=== PATIENT | male | born 1995 | race American Indian/Alaskan Native ===

== ENCOUNTER 2017-04-17 01:30 | Emergency (ER) | payer SELFPAY ==
[2017-04-17] MEDS ORDERED: NACL 0.9% 1000 ML 1,000 ML IV ONE (01:51)
--- NOTE | 2017-04-17 02:03 | Emergency Department Report ---
HPI - General Time Seen by Provider: 04/17/17 01:42 - HPI HPI: This is a 21 year-old male presents to the emergency department by EMS with some altered mental status. The patient allegedly was at a libertarian where he did some type of drug and then apparently left the libertarian and ran to a nearby gas station. He was found banging on doors and windows they 're saying that someone is trying to kill him. He now says that he was trying to get out of the libertarian as he did not like the environment and is mentioning something regarding their being transgender individual is there and concern for catching some type of disease. He is AAO 3 but does appear confused. ED Past Medical Hx - Medications Home Medications: Home Medications Medication Instructions Recorded Confirmed Last Taken Type No Known Home Medications [No 04/17/17 04/17/17 Unknown History Reported Home Medications] ED Review of Systems ROS: Stated complaint: AMS Other details as noted in HPI Comment: Unobtainable due to pts medical conditions Physical Exam - Physical Exam Physical Exam: GENERAL: The patient is well-developed well-nourished. HENT: Normocephalic. Atraumatic. Patient has moist mucous membranes. EYES: Extraocular motions are intact. Pupils equal reactive to light bilaterally. No nystagmus. NECK: Supple. Trachea is midline. CHEST/LUNGS: Clear to auscultation. There is no respiratory distress noted. HEART/CARDIOVASCULAR: Regular. There is no tachycardia. There is no gallop rub or murmur. ABDOMEN: Abdomen is soft, nontender. Patient has normal bowel sounds. There is no abdominal distention. SKIN: Skin is warm and dry NEURO: Patient is awake and AAO 3 but still show some confusion. The patient is cooperative. The patient has normal speech. MUSCULOSKELETAL: There is no tenderness or deformity. There is no limitation range of motion. There is no evidence of acute injury. ED Medical Decision Making - Lab Data Result diagrams: 04/17/17 02:12 04/17/17 02:12 - EKG Data -: EKG Interpreted by Me EKG shows normal: sinus rhythm, axis, intervals, QRS complexes (early repolarization), ST-T waves Rate: normal - EKG Data When compared to previous EKG there are: previous EKG unavailable Interpretation: other (sinus rhythm, normal axis, normal intervals, early repolarization pattern) - Radiology Data Radiology results: image reviewed interpreted by me: Chest x-ray does not show any acute process. There are no pleural effusions, obvious pneumonia and there is no pneumothorax. - Medical Decision Making 21-year-old male presents with some altered mental status. It appears as if he smoked marijuana that may or may not have been laced with something and he had an adverse reaction. When he came in he was awake but still showed some confusion. His labs are mostly unremarkable except for a slightly elevated lactic acid level. He came in with tachycardia, tachypnea but he was afebrile and there was no hypoxia. He was given some IV fluid. Chest x-ray did not show any acute process. He was reevaluated multiple times over multiple hours and has greatly improved and is back at his normal baseline mental status. His parents are bedside and agreed that he is back to normal. We did not find the offending agent that caused his symptoms and/or some transient altered mental status and her psychosis. Since the patient is feeling well, back at baseline, and currently asymptomatic and will be going home with his parents who can keep an eye on him, he will be discharged home despite the slight elevation in the lactic acid level. The vital signs improved to normal. He's been encouraged to stay away from any further illicit drug use and return to the emergency department with any acute distress. - Differential Diagnosis substance abuse, psychosis, schizophrenia Critical Care Time: No Critical care attestation.: If time is entered above; I have spent that time in minutes in the direct care of this critically ill patient, excluding procedure time. ED Disposition Clinical Impression: Hypokalemia Altered mental status Qualifiers: Altered mental status type: transient alteration of awareness Qualified Code(s) : R40.4 - Transient alteration of awareness Disposition: DC-01 TO HOME OR SELFCARE Is pt being admited?: No Condition: Stable Instructions: Hypokalemia (ED), Altered Mental Status (ED) Additional Instructions: Please follow up with a primary care physician as soon as possible. Please try and avoid any further illicit drug use. Return to the emergency department immediately if there is any signs of altered mental status, chest pain or shortness of breath, or any acute distress. Referrals: PRIMARY CARE, [Primary Care Provider] - 3-5 Days ALYSE ZELAYA MD [Staff Physician] - 3-5 Days LYN PRIEST MD [Staff Physician] - 3-5 Days Time of Disposition: 05:28
[2017-04-17 02:48] LABS: Alanine Aminotransferase 15 units/L (7-56); Albumin 4.1 g/dL (3.9-5); Albumin/Globulin Ratio 1.5 %; Alkaline Phosphatase 55 units/L (35-129); Anion Gap 23 mmol/L; BUN/Creatinine Ratio 14; Bilirubin,Total < 0.20 mg/dL (0.1-1.2); Blood Urea Nitrogen 18 mg/dL (9-20); Carbon Dioxide 24 mmol/L (22-30); Chloride 91.4 mmol/L (98-107); Creatine Kinase 233 units/L (55-170); Glucose 220 mg/dL (75-100); Potassium 3.2 mmol/L (3.6-5.0); Sodium 135 mmol/L (137-145); Total Protein 6.8 g/dL (6.3-8.2)
[2017-04-17] MEDS ORDERED: K-DUR PO ONE (02:55)
[2017-04-17 02:56] LABS: Basophils % (Auto) 0.3 % (0.0-1.8); Eosinophils % (Auto) 0.5 % (0.0-4.3); Hematocrit 36.7 % (35.5-45.6); Hemoglobin 12.2 gm/dl (11.8-15.2); Mean Corpuscular HGB Conc 33 % (32-34); Mean Corpuscular Hemoglobin 26 pg (28-32); Mean Corpuscular Volume 78 fl (84-94); Platelet Count 207 K/mm3 (140-440); Red Blood Count 4.73 M/mm3 (3.65-5.03); Red Cell Distribution Width 13.4 % (13.2-15.2); White Blood Count 7.7 K/mm3 (4.5-11.0)
[2017-04-17 03:25] LABS: Urine Drugs of Abuse Note Disclamer
[2017-04-17 03:47] LABS: Bilirubin,Urine NEG (Negative); Blood,Urine NEG (Negative); Ketones,Urine NEG (Negative); Leukocyte Esterase,Urine NEG (Negative); Mucus,Urine FEW /HPF; Nitrite,Urine NEG (Negative); Protein,Urine <15 mg/dL mg/dL (Negative); Urobilinogen,Urine < 2.0 mg/dL (<2.0)
[2017-04-17] MEDS ORDERED: XOPENEX IH ONE (04:09)
--- NOTE | 2017-04-17 05:14 | XRay Report ---
FINAL REPORT PROCEDURE: XR CHEST ROUTINE 2V TECHNIQUE: PA and lateral chest radiographs were obtained. CPT 48095 HISTORY: SOB COMPARISON: No prior studies are available for comparison. FINDINGS: Heart: Normal. Mediastinum/Vessels: Normal. Lungs/Pleural space: Normal. Bony thorax: No acute osseous abnormality. Other: IMPRESSION: Normal examination.
[2017-04-17 05:43] VITALS: BP 136/47
== END 2017-04-17 05:48 | disposition home or self-care (01) ==
LOC: ED 01:30
DX: R40.4 Transient alteration of awareness (principal); E87.6 Hypokalemia
CPT/HCPCS: 36415; 71020; 80053; 80307; 81001; 82140; 82550; 84443; 84484; 85025; 93005; 93010; 94640; 96360; 99285; G0480; J7030; 80320